=== PATIENT | female | born 1960 | race African-American/Black ===

== ENCOUNTER 2019-06-05 09:03 | Emergency (ER) | payer OTHER ==
[~2019-06-05] VITALS: Ht 172.7 cm; Wt 77.6 kg
[2019-06-05 09:21] VITALS: BP 146/80
[2019-06-05] MEDS ORDERED: MELO-176 PO (09:27)
[2019-06-05] MEDS ORDERED: GABA300C PO (09:27)
[2019-06-05] MEDS ORDERED: ENAL-197 PO (09:27)
[2019-06-05 10:14] LABS: BASOPHILS % (AUTO) 0.9 % (0.0-2.0); EOSINOPHILS # (AUTO) 0.2 K/uL (0-0.4); EOSINOPHILS % (AUTO) 7.6 % (0.0-4.0); HEMATOCRIT 36.2 % (36-48); HEMOGLOBIN 11.7 g/dL (12.0-16.0); LYMPHOCYTES # (AUTO) 0.8 K/uL (2.5-16.5); LYMPHOCYTES % (AUTO) 30.9 % (20.5-51.1); MEAN CORPUSCULAR HEMOGLOBIN 27 pg (27-31); MEAN CORPUSCULAR HGB CONC 32 g/dL (33-37); MEAN CORPUSCULAR VOLUME 82.2 fL (80-94); MONOCYTES # (AUTO) 0.3 K/uL (0.8-1.0); MONOCYTES % (AUTO) 11.2 % (1.7-9.3); NEUTROPHILS # (AUTO) 1.2 K/uL (1.8-7.7); NEUTROPHILS % (AUTO) 49.4 % (42.2-75.2); PLATELET COUNT (AUTO) 172 K/uL (140-450); WHITE BLOOD COUNT (AUTO) 2.5 K/uL (4.8-10.8)
[2019-06-05 10:20] LABS: ANION GAP 11.1 (8-16); CARBON DIOXIDE 26.7 mmol/L (21-32); CREATININE 0.9 mg/dL (0.6-1.3); POTASSIUM 3.8 mmol/L (3.5-5.1)
[2019-06-05] MEDS ORDERED: NACL 0.9% 1,000 ML IV ONE (10:40)
[2019-06-05] MEDS ORDERED: ASPIRIN 81 MG TAB.CHEW PO ONE (10:40)
[2019-06-05] MEDS ORDERED: KETOROLAC 15 MG/ML VIAL ONE (15:52)
[2019-06-05] MEDS ORDERED: KETOROLAC 15 MG/ML VIAL IVP ONE (15:55)
[2019-06-05 16:05] VITALS: BP 154/73
== END 2019-06-05 16:05 | disposition home or self-care (01) ==
LOC: MED 09:03
DX: R07.9 Chest pain, unspecified (principal); I10 Essential (primary) hypertension; Z79.899 Other long term (current) drug therapy; Z88.6 Allergy status to analgesic agent
CPT/HCPCS: 36415; 71045; 71275; 80048; 84484; 85025; 85379; 96374; 99284; J1885; Q0092; Q9967; 93005; J7030

== ENCOUNTER 2019-09-10 07:05 | Day surgery (SDC) | payer OTHER ==
[~2019-09-10] VITALS: Ht 172.7 cm; Wt 84.8 kg
[~2019-09-10 07:05] MED LIST: ENAL-197 PO; GABA300C PO; MELO-176 PO
[2019-09-10] MEDS ORDERED: fentaNYL 0.05 MG/ML VIAL ONE (09:19)
[2019-09-10] MEDS ORDERED: LIDOCAINE 2% 100 MG/5 ML UJET TP ONE (09:20)
[2019-09-10] MEDS ORDERED: MIDAZOLAM 2 MG/2 ML VIAL ONE (09:33)
[2019-09-10] MEDS ORDERED: fentaNYL 0.05 MG/ML VIAL IVP ONE (09:43)
[2019-09-10] MEDS ORDERED: MIDAZOLAM 2 MG/2 ML VIAL IVP ONE (14:40)
== END 2019-09-10 11:34 | disposition home or self-care (01) ==
LOC: MDS 07:05 → MMU 07:06 → MDS 11:34
PROVIDERS: ATTEND Internal Medicine Gastroenterology
DX: Z12.11 Encounter for screening for malignant neoplasm of colon (principal); I10 Essential (primary) hypertension; E66.3 Overweight; Z79.899 Other long term (current) drug therapy
CPT/HCPCS: 45378; J2250; J3010